=== PATIENT | male | born 1970 | race Caucasian/White ===

== ENCOUNTER 2025-01-20 09:05 | Day surgery (SDC) | payer BC ==
[~2025-01-20 09:05] MED LIST: Midazolam 1 MG/ML 2 ML SDV ONE; Propofol 200 MG/20 ML SDV ONE; fentaNYL 50 MCG/ML SDV ONE
[2025-01-20] MEDS: Lactated Ringers 1,000 ML IV SCH (09:47)
[2025-01-20] MEDS ORDERED: Propofol 200 MG/20 ML SDV ONE (09:58)
[2025-01-20 10:50] VITALS: BP 128/79; PULSE 64
== END 2025-01-20 10:59 | disposition home or self-care (01) ==
LOC: JP.SDS 09:05
PROVIDERS: ATTEND Surgery
DX: Z12.11 Encounter for screening for malignant neoplasm of colon (principal)
CPT/HCPCS: 00812-QZ; J2250; J2704; J3010; J7120